=== PATIENT | male | born 1955 | race Caucasian/White ===

== ENCOUNTER → 2018-11-25 | Outpatient (CLI) | payer OTHER ==
[~2018-11-25] MED LIST: ANUSOL-HC25 MG RC; APRESOLINE25 MG PO; BACTRIM 400 MG-1 TAB PO; CARDIZEM CD300 MG PO; CEPHALEXIN500 M1 PO; CIPRO500 MG PO; COUMADIN5 M2 PO; COUMADIN7.5 M1 PO; Coumadin2 MG PO; FISH OIL500 M1 PO; FLEXERIL5 MG PO; HYDR25T PO; HYDRALAZINE10 MG PO; HYDROCHLOROTH12.5 M2 PO; HYDROCHLOROTH12.5 M3 PO; K-DUR 2020 MEQ PO; KLOR-CON M2020 ME1 PO; LANTUS100 U/ML SC; LASIX20 MG PO; LASIX40 MG PO; LISINOPRIL20 MG PO; LISINOPRIL40 MG PO; LOPRESSOR100 M1 PO; LOPRESSOR50 M1 PO; METFORMIN500 MG PO; METOPROLOL50 MG PO; Miralax Powder255 GM PO; NAPROSYN375 MG PO; SIMVASTATIN10 MG PO; SIMVASTATIN20 MG PO; TERAZOSIN HCL10 M1 PO; TRAZODONE50 MG PO; TYLENOL500 MG PO; ULTRAM50 MG PO; VICODIN 5/500 505 MG PO; VITAMIN D5000 I3 PO; Zofran4 MG PO
== END | disposition home or self-care (01) ==
LOC: RAD 13:48
DX: M19.071 Primary osteoarthritis, right ankle and foot (principal)

== ENCOUNTER 2021-04-15 21:53 | Emergency (ER) | payer OTHER ==
[~2021-04-15] VITALS: Ht 177.8 cm; Wt 127.0 kg
[2021-04-15 22:14] VITALS: BP 137/67
[2021-04-15 22:40] LABS: BASO % 0.3 % (0.0-1.0); EOS # 0.1 10*3/uL (0.0-0.4); HEMATOCRIT 38.8 % (42.0-52.0); LYMPH # 3.3 10*3/uL (1.3-4.4); MEAN CELL VOLUME 90.2 fl (80.0-94.0); MEAN CORPUSCULAR HGB 30.7 pg (27.0-31.0); MEAN PLATELET VOLUME 10.6 fl (9.6-12.3); MONO # 1.2 10*3/uL (0.1-1.0); MONO % 8.6 % (3.0-9.0); PLATELET COUNT AUTOMATED 275 10*3/uL (130-400); RED CELL DISTRI WIDTH 12.3 % (0-14.5); WHITE BLOOD COUNT 13.7 10*3/uL (4.8-10.8)
[2021-04-15 22:56] LABS: ALBUMIN 3.7 gm/dl (3.1-4.5); CREATININE 1.63 mg/dL (0.70-1.30)
== END 2021-04-15 23:51 | disposition home or self-care (01) ==
LOC: ED 21:53
PROVIDERS: Emergency Medicine
DX: E86.0 Dehydration (principal); Z13.89 Encounter for screening for other disorder; Z79.899 Other long term (current) drug therapy; Z88.2 Allergy status to sulfonamides

== ENCOUNTER → 2023-01-23 | Outpatient (CLI) | payer OTHER | END | disposition home or self-care (01) | LOC: CARD 01:36 | PROVIDERS: ATTEND Family Medicine | DX: I34.81 Nonrheumatic mitral (valve) annulus calcification (principal); I50.9 Heart failure, unspecified ==

== ENCOUNTER 2024-12-08 02:13 | Emergency (ER) | payer OTHER ==
[~2024-12-08] VITALS: Ht 177.8 cm; Wt 122.5 kg
[~2024-12-08 02:13] MED LIST changes: +ELIQUIS5 M1 PO; +EZALLOR SPRINKL10 MG PO; +LISINOPRIL10 M1 PO; +MELATONIN12 MG PO; +METOPROLOL SUC100 M1 PO; +NORVASC5 MG PO; +ROSUVASTATIN CA10 MG PO; +VITAMIN B12500 MC2 PO
[2024-12-08 02:21] VITALS: BP 168/92
[2024-12-08] MEDS ORDERED: HYDROmorphONE Hydrochloride 0.5 MG/0.5 ML SYRINGE IV ONE ×2 (02:30→05:25)
[2024-12-08] MEDS ORDERED: Ondansetron Hydrochloride 4 MG/2 ML VIAL IV ONE (02:30)
[2024-12-08 02:42] LABS: BASO # 0.1 10*3/uL (0.0-0.1); BASO % 0.3 % (0.0-1.0); EOS # 0.2 10*3/uL (0.0-0.4); EOS % 1.4 % (1.0-4.0); HEMATOCRIT 45.1 % (42.0-52.0); MEAN CELL VOLUME 88.4 fl (80.0-94.0); MEAN CORPUSCULAR HGB 30.4 pg (27.0-31.0); MEAN CORPUSCULAR HGB CONC 34.4 g/dl (33.0-37.0); MEAN PLATELET VOLUME 10.3 fl (9.6-12.3); MONO # 1.4 10*3/uL (0.1-1.0); MONO % 8.3 % (3.0-9.0); NEUT # 12.2 10*3/uL (2.3-7.9); PLATELET COUNT AUTOMATED 241 10*3/uL (130-400); RED CELL DISTRI WIDTH 11.9 % (0-14.5); WHITE BLOOD COUNT 16.7 10*3/uL (4.8-10.8)
[2024-12-08 03:34] LABS: ALKALINE PHOSPHATASE 80 U/L (46-116); BUN 8 mg/dl (9-23); CHLORIDE 96 mmol/L (98-107); LIPASE 48 U/L (12-53); POTASSIUM 3.8 mmol/L (3.4-5.1); SGPT/ALT 21 U/L (5-49)
[2024-12-08] MEDS ORDERED: Ondansetron4 MG PO (05:26)
[2024-12-11] MEDS ORDERED: METRONIDAZOLE500 M1 PO (10:59)
== END 2024-12-08 05:49 | disposition home or self-care (01) ==
LOC: ED 02:13
PROVIDERS: Internal Medicine
DX: R10.11 Right upper quadrant pain (principal); T50.995A Adverse effect of other drugs, medicaments and biological substances, initial encounter; R14.0 Abdominal distension (gaseous); D72.829 Elevated white blood cell count, unspecified; Z88.2 Allergy status to sulfonamides; Z79.899 Other long term (current) drug therapy; Z90.49 Acquired absence of other specified parts of digestive tract; Z96.642 Presence of left artificial hip joint; Z98.890 Other specified postprocedural states; Z87.891 Personal history of nicotine dependence; Y92.89 Other specified places as the place of occurrence of the external cause